=== PATIENT | female | born 1995 | race Caucasian/White ===

== ENCOUNTER 2020-01-31 12:04 | Emergency (ER) | payer OTHER, SELFPAY ==
[2020-01-31 12:15] VITALS: BP 121/80; PULSE 86; RESP 16; TEMP 36.6; O2SAT 100; BMI 37.4
--- NOTE | 2020-01-31 12:19 | ECG_ITS ---
Test Reason : SOB Blood Pressure : / mmHG Vent. Rate : 094 BPM Atrial Rate : 094 BPM P-R Int : 120 ms QRS Dur : 088 ms QT Int : 360 ms P-R-T Axes : 053 031 012 degrees QTc Int : 450 ms Normal sinus rhythm Normal ECG No previous ECGs available Referred By: Melba Hilliard Electronically Signed By:JUAN ALVARADO
--- NOTE | 2020-01-31 12:20 | XR_ITS ---
EXAMINATION: XR CHEST CLINICAL INFORMATION: SOB. COMPARISON: None TECHNIQUE: Frontal view of the chest was obtained. FINDINGS: The lungs are somewhat expanded with no acute pneumonic consolidation. Minimal prominence of or interstitial markings are seen. There is no pleural effusion. Heart size and pulmonary vascularity is normal. No gross bony abnormality seen. XR/XR chest 1V IMPRESSION: No acute cardiopulmonary process suspected at this time. However patient does have mild interstitial prominence, nonspecific
--- NOTE | 2020-01-31 12:24 | ED_ITS ---
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 Per EMS patient was found in mild respiratory distress, given 2 mg of IV magnesium, Solu-Medrol, and DuoNeb by EMS JAVASCRIPT SOFTWARE ENGINEER. Patient reports acute on chronic cough and chest tightness at present. Denies fever, chills, recent travel, LE edema, contact with MING Duran MD elicited complaint: shortness of breath and cough Related Data Previous Rx's Medication Instructions Recorded azithromycin See Rx Instructions .ROUTE 01/31/20 .COMPLEX #6 tab Allergies Allergy/AdvReac Type Severity Reaction Status Date / Time milk Allergy Unknown Verified 01/31/20 12:15 aspirin AdvReac Unknown Verified 01/31/20 12:15 ibuprofen [From Motrin] AdvReac Unknown Verified 01/31/20 12:15 Review of Systems Review of Systems: Constitutional: No Weight loss, No Fever, No Chills ENT/Mouth: No Hearing loss, No Ear Pain, No Nasal Congestion, No sore throat Eyes: No Eye Pain, No Swelling, No Redness, No Foreign Body, No Discharge, No Vi sylvie Changes Cardiovascular: + Chest Pain, + SOB, + Dyspnea on Exertion, No Orthopnea, No Edema Respiratory: No Cough, No Sputum, No Wheezing, No Smoke Exposure, No Dyspnea Gastrointestinal: No Nausea, No Vomiting, No Diarrhea, No Constipation, No Abdominal pain Musculoskeletal: No joint pain, No Myalgias, No Joint Swelling Skin: No Skin Lesions, No rash Yes all other systems are reviewed and are negative [facility] Past Medical History Attestation statement: The following information was validated with the patient. Social History Social History Advance Directives: No Advance Directives Information Provided: No Physical Exam Vital Signs: Vital Signs: Last Vital Signs Temp 97.9 F 01/31/20 12:15 Pulse 100 01/31/20 12:38 Resp 16 01/31/20 12:15 BP 121/80 01/31/20 12:15 Pulse Ox 100 01/31/20 12:15 Body Mass Index 37.4 Const: General: cooperative and healthy appearing Orientation/consciousness: patient oriented x3 Limitations: no limitations HENMT: Head: Yes normal to inspection Ears: hearing grossly normal bilaterally General nose exam: Normal external nose present Face and sinus: Yes normal facial exam Eyes: General: appearance normal, both eyes and all related structures EOM: EOMs intact bilaterally Neck: Neck: Yes normal visual inspection Resp: Other: Good air movement Effort & Inspection: normal respiratory effort Auscultation: clear to auscultation bilaterally and wheezes lower bilaterally Cardio: Rate: regular rate Heart sounds: S1 normal heart sound present and S2 normal heart sound present GI: Inspection: Yes normal to inspection Palpation (GI): Soft to palpation, nontender, no guarding and not rigid Skin: Rashes: no rashes Wounds: no wounds Neuro: General: patient oriented x3 Gait exam (Neuro): Normal gait present Extrem: Other: No LE edema or calf tenderness General: Yes normal to inspection Course Course Course Narrative: * 1410-on re-evaluation patient with lungs CTA. Reports symptomatic improvement after DuoNeb. Labs pending. CXR without acute process, does have mild interstitial prominence/nonspecific > likely patient has chronic pulmonary disease * 1420-leukocytosis of 16.8 > likely from patient's chronic prednisone use. Unlikely sepsis/other infectious/bacterial etiology * 1441-labs otherwise unremarkable including troponin * [id number] positive > patient reports she tested positive for COVID-19 3 weeks ago. Satting 96% on RA in no respiratory distress, lungs CTA > will abulate with pulse ox, and it does not desat plan for discharge home with Azithromycin. Patient already has prednisone/albuterol/nebs at home * 1520-patient ambulated in ED with pulse ox maintaining saturations greater than 94% without any respiratory distress or SOB. Plan for DC home with close PCP/pulmonology follow-up. Worrisome signs symptoms and strict return precautions discussed. 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 On exam satting 100% on aerosol mask, in no respiratory distress, bibasilar wheezing, nontoxic appearing. Concern for asthma exacerbation vs panic attack vs COVID-19. Rule out pneumonia. Lower concern for ACS/PE Plan: EKG, labs, CXR, DuoNeb, reassess Lab Data Result diagrams: 01/31/20 13:51 01/31/20 13:51 Labs: Lab Results 01/31/20 01/31/20 01/31/20 Range/Units 13:51 13:51 13:51 WBC 16.8 H (4.8-10.8) X10*3/uL RBC 4.84 (4.20-5.50) X10*6/uL Hgb 12.7 (12.0-16.0) g/dl Hct 40.1 (37-47) % MCV 82.9 (80-98) fL MCH 26.2 L (27.0-33.0) pg MCHC 31.7 (31.0-35.0) g/dl RDW 16.7 H (11.0-16.0) % Plt Count 342 (160-400) X10*3/uL MPV 8.7 L (9.4-12.3) fL Immature Gran % (Auto) 0.4 (0.0-0.4) % Neut % (Auto) 92.7 H (45-73) % Lymph % (Auto) 4.5 L (20-40) % Bell % (Auto) 2.0 (2-11) % Eos % (Auto) 0.2 (0-4) % Baso % (Auto) 0.2 (0-2) % Lymph # (Auto) 0.8 L (1.2-4.9) X10*3/uL [place] # (Auto) 0.3 (0.1-1.2) X10*3/uL Eos # (Auto) 0.0 (0.0-0.4) X10*3/uL Baso # (Auto) 0.0 (0.0-0.2) X10*3/uL Abs Immat Gran (auto) 0.06 H (0.00-0.03) X10*3/uL Absolute Neuts (auto) 15.5 H (2.0-8.3) X10*3/uL Absolute Nucleated RBC 0.000 (0.0-0.012) X10*3/uL Nucleated RBC % (auto) 0.0 (0.0-0.2) /100WBC Smear Tech's Comments VERIFIED Hold Blue Top Sodium 139 (135-145) mmol/L Potassium 3.5 (3.3-5.1) mmol/l Chloride 105 (96-108) mmol/L Carbon Dioxide 23 (22-29) mmol/L Anion Gap 15 (12-20) BUN 13 (9-16) mg/dL Creatinine 0.74 (0.5-1.4) mg/dL Estim Creat Clear Calc 116.9 Estimated GFR > 60 Random Glucose 98 (60-115) mg/dL Calcium 8.4 (8.4-10.2) mg/dL Magnesium 2.5 (1.6-2.6) mg/dL Total Bilirubin (0.0-1.0) mg/dL Direct Bilirubin (0.0-0.5) mg/dL AST (5-31) U/L ALT (0-31) U/L Alkaline Phosphatase (39-117) U/L Troponin I High Sens 4.3 (<3.5-17.0) ng/L Total Protein (6.5-8.0) g/dL Albumin (3.5-5.0) g/dL Coronavirus (PCR) (Negative) Influenza Type A (PCR) (Negative) Influenza Type B (PCR) (Negative) RSV RNA Qual (PCR) (Negative) 01/31/20 01/31/20 01/31/20 Range/Units 13:51 13:51 13:51 WBC (4.8-10.8) X10*3/uL RBC (4.20-5.50) X10*6/uL Hgb (12.0-16.0) g/dl Hct (37-47) % MCV (80-98) fL MCH (27.0-33.0) pg MCHC (31.0-35.0) g/dl RDW (11.0-16.0) % Plt Count (160-400) X10*3/uL MPV (9.4-12.3) fL Immature Gran % (Auto) (0.0-0.4) % Neut % (Auto) (45-73) % Lymph % (Auto) (20-40) % [place] % (Auto) (2-11) % Eos % (Auto) (0-4) % Baso % (Auto) (0-2) % Lymph # (Auto) (1.2-4.9) X10*3/uL [place] # (Auto) (0.1-1.2) X10*3/uL Eos # (Auto) (0.0-0.4) X10*3/uL Baso # (Auto) (0.0-0.2) X10*3/uL Abs Immat Gran (auto) (0.00-0.03) X10*3/uL Absolute Neuts (auto) (2.0-8.3) X10*3/uL Absolute Nucleated RBC (0.0-0.012) X10*3/uL Nucleated RBC % (auto) (0.0-0.2) /100WBC Smear Tech's Comments Hold Blue Top SEE NOTE Sodium (135-145) mmol/L Potassium (3.3-5.1) mmol/l Chloride (96-108) mmol/L Carbon Dioxide (22-29) mmol/L Anion Gap (12-20) BUN (9-16) mg/dL Creatinine (0.5-1.4) mg/dL Estim Creat Clear Calc Estimated GFR Random Glucose (60-115) mg/dL Calcium (8.4-10.2) mg/dL Magnesium (1.6-2.6) mg/dL Total Bilirubin 0.3 (0.0-1.0) mg/dL Direct Bilirubin 0.2 (0.0-0.5) mg/dL AST 18 (5-31) U/L ALT 18 (0-31) U/L Alkaline Phosphatase 93 (39-117) U/L Troponin I High Sens (<3.5-17.0) ng/L Total Protein 7.8 (6.5-8.0) g/dL Albumin 4.4 (3.5-5.0) g/dL Coronavirus (PCR) POSITIVE A (Negative) Influenza Type A (PCR) NEGATIVE (Negative) Influenza Type B (PCR) NEGATIVE (Negative) RSV RNA Qual (PCR) NEGATIVE (Negative) Discharge Plan Discharge Clinical Impression: COVID-19, Anxiety Asthma with exacerbation Qualifiers: Asthma severity: unspecified severity Asthma persistence: unspecified Qualified Code(s): J45.901 - Unspecified asthma with (acute) exacerbation Patient Disposition: Home, Self-Care Instructions: Asthma (ED), COVID-19 (Coronavirus Disease 2019) (ED) Additional Instructions: Your blood work and chest x-ray were reassuring today in the ED. You are still positive for COVID-19, which is to be expected with her recent COVID-19 illness. You need to continue using her neb machine, inhalers, and taking daily prednisone at home YOU ALSO NEED TO START TAKING AZITHROMYCIN PRESCRIBED Call your doctor and your technical designer If her symptoms persist, recur, you have fever, constant worsening shortness of breath or chest pain return to the ED Prescriptions: New azithromycin 250 mg tablet See Rx Instructions .ROUTE .COMPLEX Qty: 6 RF: 0 Referrals: Physician,None [Primary Care Provider] - 2 days (Your doctor)
[2020-01-31] MEDS: Albuterol/Iprat 2.5/0.5MG 3 ML AMPUL.NEB INHALE (12:34)
[2020-01-31] MEDS: LORazepam 1 MG TABLET PO (12:37)
[2020-01-31 12:38] VITALS: PULSE 100; O2SAT 97
[2020-01-31 13:58] LABS: Basophils Percent Auto 0.2 % (0-2); Eosinophils Percent Auto 0.2 % (0-4); Hematocrit 40.1 % (37-47); Hemoglobin 12.7 g/dl (12.0-16.0); Imm Gran Abs Auto 0.06 X10*3/uL (0.00-0.03); Imm Gran Pct Auto 0.4 % (0.0-0.4); Lymphocytes Absolute Auto 0.8 X10*3/uL (1.2-4.9); Lymphocytes Percent Auto 4.5 % (20-40); Mean Corpuscular HGB Conc 31.7 g/dl (31.0-35.0); Mean Corpuscular Hemoglobin 26.2 pg (27.0-33.0); Mean Corpuscular Volume 82.9 fL (80-98); Mean Platelet Volume 8.7 fL (9.4-12.3); Monocytes Absolute Auto 0.3 X10*3/uL (0.1-1.2); Neutrophils Absolute Auto 15.5 X10*3/uL (2.0-8.3); Neutrophils Percent Auto 92.7 % (45-73); Platelet Count 342 X10*3/uL (160-400); Red Blood Count 4.84 X10*6/uL (4.20-5.50); Red Cell Distribution Width 16.7 % (11.0-16.0); SCAN SMEAR FLAG 1; White Blood Count 16.8 X10*3/uL (4.8-10.8)
[2020-01-31 13:59] LABS: MANUAL DIFF FLAG SCAN
[2020-01-31 14:18] LABS: SLIDE REVIEW VERIFIED
[2020-01-31 14:26] LABS: Alanine Aminotransferase 18 U/L (0-31); Albumin Level 4.4 g/dL (3.5-5.0); Alkaline Phosphatase 93 U/L (39-117); Anion Gap 15 (12-20); Aspartate Amino Transferase 18 U/L (5-31); Bilirubin Direct 0.2 mg/dL (0.0-0.5); Bilirubin Total 0.3 mg/dL (0.0-1.0); Blood Urea Nitrogen 13 mg/dL (9-16); Calcium 8.4 mg/dL (8.4-10.2); Carbon Dioxide 23 mmol/L (22-29); Chloride 105 mmol/L (96-108); Creatinine Clr Calc Pharmacy 116.9; Estimated Glomerular Filt Rate > 60; Glucose Random 98 mg/dL (60-115); Magnesium 2.5 mg/dL (1.6-2.6); Potassium 3.5 mmol/l (3.3-5.1); Sodium 139 mmol/L (135-145); Total Protein 7.8 g/dL (6.5-8.0)
[2020-01-31 14:29] LABS: Troponin-I High Sensitivity 4.3 ng/L (<3.5-17.0)
[2020-01-31 14:38] LABS: Influenza A PCR NEGATIVE (Negative); Influenza B PCR NEGATIVE (Negative); Resp Syncy Virus RNA Qual PCR NEGATIVE (Negative); SARS COV2 PCR INHOUSE POSITIVE (Negative)
[2020-01-31] MEDS: Azithromycin 500 MG TABLET PO (15:42)
[2020-01-31 15:57] VITALS: PULSE 88; RESP 18; O2SAT 94
== END 2020-01-31 15:59 | disposition home or self-care (01) ==
PROVIDERS: Physician Assistant; Emergency Provider Emergency Medicine
DX: U07.1 COVID-19 (principal); R05 Cough; R06.00 Dyspnea, unspecified; F41.1 Generalized anxiety disorder; F43.0 Acute stress reaction
CPT/HCPCS: 0241U; 36415; 71045; 80048; 80076; 83735; 84484; 85025; 93005; 94640; 99284

== ENCOUNTER 2020-02-20 12:56 | Emergency (ER) | payer OTHER, SELFPAY ==
--- NOTE | 2020-02-20 | ECG_ITS ---
Test Reason : DYSPNEA Blood Pressure : / mmHG Vent. Rate : 087 BPM Atrial Rate : 087 BPM P-R Int : 114 ms QRS Dur : 090 ms QT Int : 368 ms P-R-T Axes : 055 054 016 degrees QTc Int : 442 ms Normal sinus rhythm with sinus arrhythmia Normal ECG When compared to the previous EKG of No significant changes seen Referred By: Erica Campos Electronically Signed By:Juan F Gray
[2020-02-20] MEDS: LORazepam 2 MG/ML VIAL 1 MG IVPUSH (13:00)
--- NOTE | 2020-02-20 13:08 | XR_ITS ---
EXAMINATION: XR CHEST CLINICAL INFORMATION: Shortness of breath. COMPARISON: 01/31/20. TECHNIQUE: Frontal view of the chest was obtained. FINDINGS: No significant abnormality is noted involving the heart, lungs, mediastinum, bony thorax or soft tissues. XR/XR chest 1V IMPRESSION: Normal examination.
[2020-02-20 13:11] VITALS: BP 128/80; BP 132/69; PULSE 80; PULSE 86; RESP 40; TEMP 36.6; O2SAT 100; O2SAT 97; BMI 29.2
--- NOTE | 2020-02-20 13:15 | PC.NURSE ---
calmed followiung ativan. even once calm was unwilling to speak but with coaching began to answer questions.
[2020-02-20 13:23] LABS: Basophils Percent Auto 0.2 % (0-2); Eosinophils Absolute Auto 0.1 X10*3/uL (0.0-0.4); Eosinophils Percent Auto 0.9 % (0-4); Hematocrit 39.7 % (37-47); Hemoglobin 12.8 g/dl (12.0-16.0); Imm Gran Abs Auto 0.02 X10*3/uL (0.00-0.03); Imm Gran Pct Auto 0.2 % (0.0-0.4); Lymphocytes Absolute Auto 2.4 X10*3/uL (1.2-4.9); Lymphocytes Percent Auto 24.1 % (20-40); MANUAL DIFF FLAG NO; Mean Corpuscular HGB Conc 32.2 g/dl (31.0-35.0); Mean Corpuscular Hemoglobin 26.5 pg (27.0-33.0); Mean Corpuscular Volume 82.2 fL (80-98); Mean Platelet Volume 8.8 fL (9.4-12.3); Monocytes Absolute Auto 1.2 X10*3/uL (0.1-1.2); Monocytes Percent Auto 11.9 % (2-11); Neutrophils Absolute Auto 6.3 X10*3/uL (2.0-8.3); Neutrophils Percent Auto 62.7 % (45-73); Platelet Count 358 X10*3/uL (160-400); Red Blood Count 4.83 X10*6/uL (4.20-5.50); Red Cell Distribution Width 17.1 % (11.0-16.0)
[2020-02-20] MEDS: 0.9 % Sodium Chloride 1,000 ML 999 ML IVCONT ×2 (13:24→14:09)
--- NOTE | 2020-02-20 13:24 | ED.SOB ---
HPI - SOB/Dyspnea General Chief Complaint: Dyspnea Stated Complaint: RESPIRATORY DISTRESS, + COVID Time Seen by Provider: 02/20/20 13:07 Source: EMS Mode of arrival: EMS Limitations: other (Severe anxiety) History of Present Illness HPI Narrative: Patient comes via EMS for respiratory distress. Per EMS, they gave the patient 2 doses of epinephrine IM and 1 dose of Solu-Medrol. On arrival to the emergency room, patient unwilling to talk, patient's oxygen saturation is 100% on room air, patient having a panic attack. According to the EMS crew, the patient called for severe respiratory distress, sudden onset. Of note, patient is known to be COVID-19 positive. Related Data Previous Rx's Medication Instructions Recorded azithromycin See Rx Instructions .ROUTE 01/31/20 .COMPLEX #6 tab Allergies Allergy/AdvReac Type Severity Reaction Status Date / Time milk Allergy Unknown Verified 02/20/20 13:04 aspirin AdvReac Unknown Verified 02/20/20 13:04 ibuprofen [From Motrin] AdvReac Unknown Verified 02/20/20 13:04 Review of Systems Review of Systems: Yes Unobtainable due to mental condition [facility] Past Medical History Medical History (Updated 02/20/20 @ 16:24 by Georgina Villeda MD) Anxiety Asthma Pulmonary hemosiderosis Social History Social History Alcohol intake: never Smoking Status: Never smoker Smoked in Last 30 Days: No Use of substances other than those prescribed or required for medical reasons: Yes Substance Use Type: Marijuana Advance Directives: No Advance Directives Information Provided: No Physical Exam Vital Signs: Vital Signs: Last Vital Signs Temp 98.4 F 02/20/20 15:24 Pulse 120 H 02/20/20 15:24 Resp 18 02/20/20 15:24 BP 134/62 02/20/20 15:24 Pulse Ox 99 02/20/20 15:24 Body Mass Index 29.2 Appearance: Alert. Patient having a panic attack Eyes: Pupils equal, round and reactive to light. ENT: Pharynx normal. Neck: Normal inspection. Neck supple. No lymph nodes noted. No crepitus CVS: Normal heart rate and rhythm. Pulses normal. Normal S1 and S2 Respiratory: Patient breathing rapidly, Breath sounds normal. No Wheezing. No rales , oxygen saturation 100% on room air Abdomen: Soft and nontender. No rigidity. No distention. good BS x4 Skin: Skin warm and dry. Normal skin color. Normal skin turgor. Extremities: No lower extremity edema. No lower extremity edema. No Lacerations. No Rash Neuro: Oriented X 3. No motor deficit. No sensory deficit. Moving all extermities. No slurred speech. Course Course Course Narrative: Patient's lactic acidosis likely due to the panic attack, in combination with 2 epinephrine. And albuterol treatments. White blood cell count is normal, chest x-ray is normal, sepsis is not suspected. Patient's respiratory distress resolved with Ativan. However, patient's D-dimer is 720, and given the history of recent diagnosis with COVID-19, patient will be scan. PE CT scan pending. Sign out given to Dr. Campos MDM - SOB/Dyspnea Lab Data Result diagrams: 02/20/20 13:15 02/20/20 13:15 Labs: Lab Results 02/20/20 02/20/20 02/20/20 Range/Units 13:15 13:15 13:15 WBC 10.0 (4.8-10.8) X10*3/uL RBC 4.83 (4.20-5.50) X10*6/uL Hgb 12.8 (12.0-16.0) g/dl Hct 39.7 (37-47) % MCV 82.2 (80-98) fL MCH 26.5 L (27.0-33.0) pg MCHC 32.2 (31.0-35.0) g/dl RDW 17.1 H (11.0-16.0) % Plt Count 358 (160-400) X10*3/uL MPV 8.8 L (9.4-12.3) fL Immature Gran % (Auto) 0.2 (0.0-0.4) % Neut % (Auto) 62.7 (45-73) % Lymph % (Auto) 24.1 (20-40) % [place] % (Auto) 11.9 H (2-11) % Eos % (Auto) 0.9 (0-4) % Baso % (Auto) 0.2 (0-2) % Lymph # (Auto) 2.4 (1.2-4.9) X10*3/uL [place] # (Auto) 1.2 (0.1-1.2) X10*3/uL Eos # (Auto) 0.1 (0.0-0.4) X10*3/uL Baso # (Auto) 0.0 (0.0-0.2) X10*3/uL Abs Immat Gran (auto) 0.02 (0.00-0.03) X10*3/uL Absolute Neuts (auto) 6.3 (2.0-8.3) X10*3/uL Absolute Nucleated RBC 0.000 (0.0-0.012) X10*3/uL Nucleated RBC % (auto) 0.0 (0.0-0.2) /100WBC D-Dimer 720 NG/ML Sodium 139 (135-145) mmol/L Potassium 3.6 (3.3-5.1) mmol/l Chloride 106 (96-108) mmol/L Carbon Dioxide 20 L (22-29) mmol/L Anion Gap 17 (12-20) BUN 13 (9-16) mg/dL Creatinine 0.79 (0.5-1.4) mg/dL Estim Creat Clear Calc 96.1 Estimated GFR > 60 Random Glucose 125 H (60-115) mg/dL Lactic Acid (0.5-2.0) mmol/L Calcium 9.2 D (8.4-10.2) mg/dL Troponin I High Sens (<3.5-17.0) ng/L B-Natriuretic Peptide (<100) pg/mL 02/20/20 02/20/20 Range/Units 13:15 13:15 WBC (4.8-10.8) X10*3/uL RBC (4.20-5.50) X10*6/uL Hgb (12.0-16.0) g/dl Hct (37-47) % MCV (80-98) fL MCH (27.0-33.0) pg MCHC (31.0-35.0) g/dl RDW (11.0-16.0) % Plt Count (160-400) X10*3/uL MPV (9.4-12.3) fL Immature Gran % (Auto) (0.0-0.4) % Neut % (Auto) (45-73) % Lymph % (Auto) (20-40) % [place] % (Auto) (2-11) % Eos % (Auto) (0-4) % Baso % (Auto) (0-2) % Lymph # (Auto) (1.2-4.9) X10*3/uL [place] # (Auto) (0.1-1.2) X10*3/uL Eos # (Auto) (0.0-0.4) X10*3/uL Baso # (Auto) (0.0-0.2) X10*3/uL Abs Immat Gran (auto) (0.00-0.03) X10*3/uL Absolute Neuts (auto) (2.0-8.3) X10*3/uL Absolute Nucleated RBC (0.0-0.012) X10*3/uL Nucleated RBC % (auto) (0.0-0.2) /100WBC D-Dimer NG/ML Sodium (135-145) mmol/L Potassium (3.3-5.1) mmol/l Chloride (96-108) mmol/L Carbon Dioxide (22-29) mmol/L Anion Gap (12-20) BUN (9-16) mg/dL Creatinine (0.5-1.4) mg/dL Estim Creat Clear Calc Estimated GFR Random Glucose (60-115) mg/dL Lactic Acid 3.5 H* (0.5-2.0) mmol/L Calcium (8.4-10.2) mg/dL Troponin I High Sens < 3.5 (<3.5-17.0) ng/L B-Natriuretic Peptide < 10 (<100) pg/mL ECG Data Attestation: I personally reviewed and interpreted this ECG as follows: (Normal sinus rhythm, heart rate 87, QTC 442, no ST segment depressions or elevations, nonspecific T-wave inversions in lead III) Discharge Plan Discharge Clinical Impression: Panic attack Patient Disposition: Home, Self-Care Instructions: Anxiety (ED) Additional Instructions: Please follow-up with your primary care physician tomorrow. If you have any worsening or new symptoms, please return to the emergency room or call 911 Prescriptions: No Action azithromycin 250 mg tablet See Rx Instructions .ROUTE .COMPLEX Qty: 6 RF: 0
[2020-02-20 13:30] LABS: D Dimer 720 NG/ML
[2020-02-20 13:41] LABS: Anion Gap 17 (12-20); Blood Urea Nitrogen 13 mg/dL (9-16); Calcium 9.2 mg/dL (8.4-10.2); Carbon Dioxide 20 mmol/L (22-29); Chloride 106 mmol/L (96-108); Creatinine Clr Calc Pharmacy 96.1; Estimated Glomerular Filt Rate > 60; Glucose Random 125 mg/dL (60-115); Potassium 3.6 mmol/l (3.3-5.1); Sodium 139 mmol/L (135-145)
[2020-02-20 13:49] LABS: B Type Natriuretic Peptide < 10 pg/mL (<100); Troponin-I High Sensitivity < 3.5 ng/L (<3.5-17.0)
[2020-02-20 13:52] LABS: Lactic Acid 3.5 mmol/L (0.5-2.0)
[2020-02-20 14:00] VITALS: BP 140/80; PULSE 105; RESP 20; TEMP 36.6; O2SAT 100
--- NOTE | 2020-02-20 14:44 | PC.NURSE ---
Sleeping. No SOB. Skin pwd.
--- NOTE | 2020-02-20 14:45 | CT_ITS ---
EXAMINATION: CT ANGIOGRAM OF THE CHEST WITH AND WITHOUT CONTRAST (CT PULMONARY ANGIOGRAM FOR PE) CLINICAL INFORMATION: Shortness breath. Elevated d-dimer. Recreation of smoker. History of pulmonary hemosiderosis. COVID diagnosed on 01/31/2020 COMPARISON: Chest x-ray dated 03/22/2020 and 01/31/2020 TECHNIQUE: Prior to contrast administration, noncontrast localization images were obtained. Subsequently, multidetector volumetric imaging was performed from the thoracic inlet to below the diaphragms following the administration of 65 mL Omnipaque 350 intravenous contrast. No contrast reaction reported Sagittal, coronal, and MIP oblique sagittal reformatted images were obtained on the CT workstation, uploaded to PACS, and reviewed. This CT examination was performed using dose optimization techniques as appropriate, variously including the following: *Automated exposure control *Adjustment of mA and/or kV according to patient size (this includes techniques or standardized protocols for targeted exams where dose is matched to indication/reason for exam; i.e. extremities or head) *Use of iterative reconstruction technique Total exam dose-length product 308 mGy-cm FINDINGS: QUALITY OF STUDY/CONTRAST BOLUS: Satisfactory. PULMONARY ARTERIES: No central or segmental pulmonary emboli. THORACIC AORTA: No aneurysm or dissection. LUNG: There is diffuse groundglass opacity throughout both lungs with mosaic bilaterally. No parenchymal consolidation. There is a 4 mm mean diameter nodule lobe with a pleural tag likely intrapulmonary lymph node. There is a 4 mm nodule within the left lower lobe. No significant bronchial wall thickening or bronchiectasis. PLEURA: No pleural effusion or pneumothorax. MEDIASTINUM: Normal heart size. No pericardial effusion. No hilar or mediastinal lymphadenopathy. No evidence of septal bowing or right heart strain. No reflux of contrast into the hepatic veins to suggest elevated right heart pressures. CHEST WALL/AXILLA: No axillary or internal mammary lymphadenopathy. OSSEOUS STRUCTURES: No acute or suspicious osseous abnormality. UPPER ABDOMEN: Unremarkable. CT/CT angio chest PE protocol IMPRESSION: * No evidence of pulmonary embolism. * Diffuse bilateral groundglass opacities, homogeneous within the upper lobes and in a mosaic pattern within the lower lobes. The lower lobe mosaic appearance suggests that this represents an airway-based process (greater ventilation within the lower lobes). Favor acute hypersensitivity pneumonitis given the patient's history. Less likely considerations would include COVID (given the atypical appearance and the time frame), and diffuse alveolar hemorrhage (given the lack of hemoptysis; only mentioned bc of the patient's history of pulmonary hemosiderosis) VTE: negative This critical result was discussed with Erica Silver MD at 02/20/2020 6:45 PM and it was ascertained that the content and urgency of the report was understood at the time of direct communication.
[2020-02-20 15:20] LABS: Reflex Lactate? Lactic Acid Added
[2020-02-20 15:24] VITALS: BP 134/62; PULSE 120; RESP 18; TEMP 36.9; O2SAT 99
[2020-02-20 17:07] LABS: UPreg QC Valid YES; Urine Pregnancy NEGATIVE (NEGATIVE)
[2020-02-20 17:09] VITALS: BP 108/57; PULSE 103; RESP 16; TEMP 37; O2SAT 97
[2020-02-20 17:23] LABS: Amphetamine Screen Urine Not Detected (Not Detect); Barbiturates, Urine Not Detected (Not Detect); Benzodiazepines Screen Urine Not Detected (Not Detect); Cannabinoid Screen Urine POSITIVE (Not Detect); Cocaine Screen Urine Not Detected (Not Detect); Opiate Screen Urine Not Detected (Not Detect); Phencyclidine Screen Urine Not Detected (Not Detect)
[2020-02-20 17:35] LABS: ~Lactic Acid-LAB USE ONLY 3.6 mmol/L (0.5-2.0)
[2020-02-20 18:25] VITALS: BP 118/70; PULSE 96; RESP 20; O2SAT 98
[2020-02-20] MEDS: iohexoL 350 MG/ML 100 ML INFUS..BTL IV (18:27)
[2020-02-20 18:45] LABS: Reflex Lactate? 2 Y
[2020-02-20 19:32] LABS: ~Lactic Acid-LAB USE ONLY 2.1 mmol/L (0.5-2.0)
[2020-02-20 19:35] LABS: Cancel Lactic Acid Canceled
[2020-02-20 20:04] VITALS: BP 118/75; PULSE 86; RESP 22; TEMP 37.1; O2SAT 98
== END 2020-02-20 20:42 | disposition home or self-care (01) ==
PROVIDERS: Emergency Medicine; Emergency Provider Emergency Medicine
DX: F41.0 Panic disorder [episodic paroxysmal anxiety] (principal); Z86.16 Personal history of COVID-19; J45.909 Unspecified asthma, uncomplicated; F12.90 Cannabis use, unspecified, uncomplicated
CPT/HCPCS: 36415; 71045; 71275; 80048; 80307; 81025; 83605; 83880; 84484; 85025; 85379; 87040; 93005; 96361; 96374; 99284; J2060; Q9967

== ENCOUNTER 2020-02-27 22:06 | Emergency (ER) | payer OTHER, SELFPAY ==
[2020-02-27 22:21] VITALS: BP 115/69; BP 133/78; PULSE 95; PULSE 97; RESP 20; TEMP 36.6; O2SAT 100; O2SAT 97; BMI 31.2
--- NOTE | 2020-02-27 22:43 | ED_ITS ---
HPI - General Adult General Chief complaint: Dyspnea Time Seen by Provider: 02/27/20 22:22 Source: patient Mode of arrival: EMS Limitations: no limitations History of Present Illness HPI narrative: 24-year-old female who presents the emergency department for evaluation shortness of breath. The patient has a history of pulmonary hemosiderosis. She states that when she has a flare up of this condition she coughs up blood or she can taste blood in the back of her mouth. She states that this evening she could taste blood in the back of her mouth and then she became short of breath. The symptoms started approximately 10 minutes prior to being transported to the emergency department. EMS felt that the patient had wheezing and stridor and gave her racemic epi en route to the hospital with improvement of her symptoms. The patient does take prednisone 40 mg once a day chronically for her pulmonary hemosiderosis. She states that she is feeling better but still feels short of breath. She states that this is a [id number]-[id number] sensation. She is also complaining of Constant, mid sternal chest tightness which is worse with breathing. The pain is xbpi-[id number] in intensity. the patient denied fever, chills, nausea, vomiting, diarrhea. The patient tested COVID positive in November and January 2020. Related Data Previous Rx's Medication Instructions Recorded azithromycin See Rx Instructions .ROUTE 01/31/20 .COMPLEX #6 tab Allergies Allergy/AdvReac Type Severity Reaction Status Date / Time milk Allergy Unknown Verified 02/27/20 22:21 aspirin AdvReac Unknown Verified 02/27/20 22:21 ibuprofen [From Motrin] AdvReac Unknown Verified 02/27/20 22:21 Review of Systems Review of Systems: Yes all other systems are reviewed and are negative Neurologic: Reports Abnormal speech present [facility] Past Medical History Medical History Anxiety Asthma Pulmonary hemosiderosis Social History Social History Alcohol intake: never Smoking Status: Never smoker Use of substances other than those prescribed or required for medical reasons: Yes Substance Use Type: Marijuana Advance Directives: No Advance Directives Information Provided: No Physical Exam Vital Signs: Vital Signs: Last Vital Signs Temp 97.9 F 02/27/20 22:21 Pulse 97 02/27/20 22:21 Resp 20 02/27/20 22:21 BP 115/69 02/27/20 22:21 Pulse Ox 97 02/27/20 22:21 Body Mass Index 31.2 Const: General: cooperative Nutritional Appearance: overweight Orientation/consciousness: oriented to person and oriented to place Limitations: no limitations HENMT: Head: Yes normal to inspection, Yes normocephalic and Yes atraumatic Ears: external ears normal General nose exam: Normal external nose present Face and sinus: Yes normal facial exam Mouth: Normal oral and palatal mucosa present Throat: Yes posterior oropharynx normal Eyes: Periorbital: periorbital findings normal Eyelids: Yes eyelids normal Conjunctivae: conjunctivae normal Sclerae: sclerae normal Corneas: corneas normal Pupils: Equal, round and reactive pupils present Direct Ophthalmoscopy: normal light reflex Neck: Neck: Yes full ROM, Yes no lymphadenopathy, Yes no meningeal signs, Yes trachea midline and Yes supple Chest: Chest palpation & inspection: normal inspection of the chest and normal palpation of entire chest wall Resp: Effort & Inspection: normal respiratory effort and able to speak in complete sentences Auscultation: wheezes scattered wheezes Cardio: Rate: regular rate Rhythm: regular rhythm Heart sounds: S1 normal heart sound present, S2 normal heart sound present and no murmurs GI: Inspection: Yes normal to inspection Palpation (GI): Soft to palpation, nontender, no guarding, not rigid and No hepatosplenomegaly present : General: Yes no CVA tenderness Back/Spine/Pelvis: Back: no CVA tenderness Cervical Spine: normal cervical lordosis Thoracic/Lumbar Spine: thoracic and lumbar spine normal to inspection Skin: Lesions: no lesions Rashes: no rashes Wounds: no wounds Neuro: General: oriented to person, oriented to place and no meningeal signs Cranial nerves: Yes CN's II-XII intact bilaterally and Yes Equal, round and reactive pupils present Cognition (Neuro): normal cognition Speech: Abnormal speech present Motor exam (neuro): 5/5 motor strength present throughout Extrem: General: Yes normal to inspection and Yes full ROM Psych: Appearance: well kempt Mental Status: mental status grossly normal Speech and movement: Normal speech and movement present Affect: normal affect Attitude: cooperative Thought process: Normal thought process present Thought content: Normal thought content present Course Course Course Narrative: 24-year-old female with history of asthma, pulmonary hemosiderosis and anxiety who presents emergency department for evaluation shortness of breath and the taste of blood in the back of her mouth which are symptoms that are consistent with flare-up of her pulmonary hemosiderosis. The patient was given racemic epinephrine EN route to the hospital with improvement of her symptoms . the patient's vital signs are stable with an O2 saturation of 97% on room air. She did have diffuse wheezing on her lung exam. I ordered Solu-Medrol 125 mg IV and albuterol nebulizer treatment on the patient. 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 Follow-up with your doctor in 2 days. Please return to the emergency department if your symptoms get worse or if you develop any symptoms that are concerning to you. Prescriptions: No Action azithromycin 250 mg tablet See Rx Instructions .ROUTE .COMPLEX Qty: 6 RF: 0
[2020-02-27 23:30] VITALS: PULSE 81; O2SAT 100
[2020-02-27] MEDS: Albuterol Sulfate (0.083%) 2.5 MG/3 ML VIAL.NEB INHALE (23:30)
== END 2020-02-28 00:07 | disposition home or self-care (01) ==
PROVIDERS: Emergency Provider Emergency Medicine Emergency Medical Services
DX: E83.10 Disorder of iron metabolism, unspecified (principal); J45.901 Unspecified asthma with (acute) exacerbation; Z86.16 Personal history of COVID-19
CPT/HCPCS: 94640; 96365; 99284; J2930

== ENCOUNTER 2024-03-06 10:50 | Emergency (ER) | payer OTHER, SELFPAY ==
[2024-03-06 11:34] VITALS: BP 127/72; PULSE 71; RESP 16; TEMP 36.8; O2SAT 99; BMI 25.9
--- NOTE | 2024-03-06 11:35 | ED_ITS ---
HPI - General Adult General Chief complaint: Skin/Abscess/Foreign Body Stated complaint: remove stitches Time Seen by Provider: 03/06/24 11:35 Source: patient and RN notes reviewed Mode of arrival: ambulatory Limitations: no limitations History of Present Illness ED Provider: Lizett HPI narrative: 28-year-old female presents for evaluation of a suture removal. She reports that she had 1 suture placed to the palm of her right hand 10 days ago at [facility] Denies any drainage from the area Related Data Previous Rx's ?Medication ?Instructions ?Recorded azithromycin 250 mg tablet See Rx Instructions PO .COMPLEX #6 01/31/20 tabs Allergies Allergy/AdvReac Type Severity Reaction Status Date / Time milk Allergy Unknown Verified 03/06/24 11:35 aspirin AdvReac Unknown Verified 03/06/24 11:35 ibuprofen [From Motrin] AdvReac Unknown Verified 03/06/24 11:35 Review of Systems Integumentary/Breasts: Skin/Breast: Reports wounds PMFSH Past Medical History Medical History Anxiety Asthma Pulmonary hemosiderosis Social History Social History Alcohol intake: never Substance Use Type: Marijuana Advance Directives: No Advance Directives Information Provided: Yes Physical Exam ED Vital Signs: Vital Signs - 24 hr 03/06/24 11:34 03/06/24 11:54 Temperature 98.2 F 98.2 F Pulse Rate 71 71 Respiratory Rate 16 16 Blood Pressure 127/72 127/72 Pulse Oximetry 99 99 Oxygen Delivery Method Room Air Room Air BMI result Body Mass Index 25.9 Skin Other: There is a 1 cm well-healed laceration to the palmar surface of the right hand in between the 1st and 2nd web spacing. The wound is well approximated, no dehiscence, no surrounding erythema or drainage. Medical Decision Making Medical Decision Making [facility] Narrative: We were easily able to remove 1 suture, the wound is remain well healed after removal of the suture. She will follow up with her PCP Differential Diagnosis Differential Diagnoses: The differential diagnosis associated with the presentation includes Suture removal Laceration Puncture wound Abrasion Discharge Plan Discharge Clinical Impression: Laceration of hand, right Patient Disposition: Home, Self-Care Instructions: Laceration (ED) Additional Instructions: The area clean and dry, follow up with your primary doctor Prescriptions: No Action azithromycin 250 mg tablet See Rx Instructions .ROUTE .COMPLEX Qty: 6 0RF Rx Instructions: take 500 mg today (day 1), then 250 mg for 4 days (days 2-5) Interventions: ED Discharge Assessment Last Done: 03/06/24 11:54 Discharge Date/Time: 03/06/24 11:57 Print Language: Armenian
[2024-03-06 11:54] VITALS: BP 127/72; PULSE 71; RESP 16; TEMP 36.8; O2SAT 99
== END 2024-03-06 11:57 | disposition home or self-care (01) ==
PROVIDERS: Emergency Provider Emergency Medicine
DX: Z48.02 Encounter for removal of sutures (principal); S61.411D Laceration without foreign body of right hand, subsequent encounter; W45.8XXD Other foreign body or object entering through skin, subsequent encounter
CPT/HCPCS: 99282

== ENCOUNTER 2024-03-16 19:28 | Emergency (ER) | payer OTHER, SELFPAY ==
--- NOTE | 2024-03-16 | ECG_ITS ---
Test Reason : CHEST PAIN Blood Pressure : */* mmHG Vent. Rate : 106 BPM Atrial Rate : 106 BPM P-R Int : 128 ms QRS Dur : 188 ms QT Int : 376 ms P-R-T Axes : 90 71 18 degrees QTcB Int : 499 ms Artifact in tracing Normal sinus rhythm likely normal When compared with ECG of 20-Feb-2020 12:59, likely No significant changes seen Referred By: Generic ED Physician Electronically Signed By: JUAN ALVARADO
--- NOTE | ~2024-03-16 | XR_ITS ---
CLINICAL HISTORY: Dyspnea 1 view chest x-ray. Comparison: 02/20/2020 Findings: Lungs are clear without acute infiltrates. No pneumothorax. Heart size normal. No acute bony abnormalities. Impression: No acute processes This document has been electronically signed by: Familia Carranza MD on 03/16/2024 20:13:07
[2024-03-16 19:39] VITALS: BP 133/86; BP 136/68; PULSE 101; PULSE 109; RESP 21; TEMP 36.8; O2SAT 100; O2SAT 98; BMI 26.7
[2024-03-16 20:32] LABS: Basophils Percent Auto 0.2 % (0-2); Hematocrit 39.8 % (37.0-47.0); Hemoglobin 14.1 g/dl (12.0-16.0); Imm Gran Abs Auto 0.02 X10*3/uL (0.00-0.03); Imm Gran Pct Auto 0.4 % (0.0-0.4); Lymphocytes Absolute Auto 1.5 X10*3/uL (1.2-4.9); Lymphocytes Percent Auto 25.4 % (20-40); MANUAL DIFF FLAG SCAN; Mean Corpuscular HGB Conc 35.4 g/dl (31.0-35.0); Mean Corpuscular Hemoglobin 31.5 pg (27.0-33.0); Mean Corpuscular Volume 88.8 fL (80.0-98.0); Mean Platelet Volume 9.2 fL (9.4-12.3); Monocytes Absolute Auto 1.2 X10*3/uL (0.1-1.2); Monocytes Percent Auto 20.5 % (2-11); Neutrophils Absolute Auto 3.1 x10*3/uL (2.0-8.3); Neutrophils Percent Auto 53.5 % (45-73); Platelet Count 253 X10*3/uL (160-400); Red Blood Count 4.48 X10*6/uL (4.20-5.50); Red Cell Distribution Width 14.3 % (11.0-16.0); SCAN SMEAR FLAG 1; White Blood Count 5.7 X10*3/uL (4.8-10.8)
[2024-03-16 20:34] LABS: VBG Base Excess -1.9 mmol/L; VBG HCO3 22 mmol/L (22-26); VBG pCO2 36 mmHg; VBG pH 7.39 (7.32-7.43); VBG pO2 69 mmHg
[2024-03-16 20:40] LABS: Venous Blood Gas Refer to POC result
[2024-03-16 20:46] LABS: Alanine Aminotransferase 20 U/L (0-31); Albumin Level 4.3 g/dL (3.5-5.0); Alkaline Phosphatase 61 U/L (39-117); Anion Gap 12 (12-20); Aspartate Amino Transferase 35 U/L (5-31); Bilirubin Total 0.3 mg/dL (0.0-1.0); Blood Urea Nitrogen 13 mg/dL (9-16); Carbon Dioxide 20 mmol/L (22-29); Chloride 109 mmol/L (96-108); Creatinine Clr Calc Pharmacy 104.6; Estimated Glomerular Filt Rate > 60; Glucose Random 94 mg/dL (60-115); Potassium 3.1 mmol/L (3.3-5.1); Sodium 138 mmol/L (135-145); Total Protein 8.2 g/dL (6.5-8.0)
[2024-03-16 20:57] LABS: Troponin-I High Sensitivity < 2.7 ng/L (<3.5-17.0)
--- NOTE | 2024-03-16 21:05 | ED.ASTHMA ---
HPI - Asthma General Chief Complaint: Asthma Stated Complaint: asthma attack x30 mins Time Seen by Provider: 03/16/24 21:05 History of Present Illness ED Provider: Madhavi PENA Narrative: The patient is a 28-year-old woman with a history of asthma and idiopathic pulmonary hemosiderosis. She has felt distinctly unwell for the last 2 days. She has had fevers, body aches, and cough. She tried using her inhaler but she did not feel it was very helpful. Ultimately she came to the hospital. The patient does not really feel that her illness feels consistent with an asthma exacerbation. Additionally the patient does not feel that these symptoms are typical of an exacerbation of her idiopathic pulmonary hemosiderosis. She has not had any hemoptysis. The patient has not had any calf swelling or pain. Related Data Previous Rx's ?Medication ?Instructions ?Recorded azithromycin 250 mg tablet See Rx Instructions PO .COMPLEX #6 01/31/20 tabs oseltamivir 75 mg capsule 75 mg PO BID 5 days #10 caps 03/16/24 Allergies Allergy/AdvReac Type Severity Reaction Status Date / Time milk Allergy Unknown Verified 03/16/24 19:45 aspirin AdvReac Unknown Verified 03/16/24 19:45 ibuprofen [From Motrin] AdvReac Unknown Verified 03/16/24 19:45 Review of Systems Review of Systems: Yes all other systems are reviewed and are negative [facility] Past Medical History Medical History Anxiety Asthma Pulmonary hemosiderosis Social History Social History Alcohol intake: never Substance Use Type: Marijuana Advance Directives: No Advance Directives Information Provided: No Do you have a plan to hurt others: No Plan Physical Exam Vital Signs: Vital Signs: Last Vital Signs Temp 98.8 F 03/16/24 21:55 Pulse 86 03/16/24 21:55 Resp 18 03/16/24 21:55 BP 113/63 03/16/24 21:55 Pulse Ox 100 03/16/24 21:55 O2 Del Method Room Air 03/16/24 21:55 O2 Flow Rate 6 03/16/24 19:39 BMI result Body Mass Index 26.7 Const: Other: The patient is a 28-year-old female who was awake and alert. She looks as if she felt unwell but she was not exhibiting any signs of acute respiratory distress. No increased work of breathing. Mental status was normal. HEENT: Other: Face is symmetrical. Mucous membranes moist. Eyes: Other: Pupils are round equal, conjunctivae are clear Neck: Other: No stridor, no lymphadenopathy Resp: Other: I did not appreciate any definite wheezes or crackles. Effort & Inspection: normal respiratory effort Auscultation: clear to auscultation bilaterally Cardio: Rate: regular rate Rhythm: regular rhythm Heart sounds: S1 normal heart sound present and S2 normal heart sound present GI: Other: Abdomen is soft and nontender Skin: Other: Skin is dry and unremarkable Neuro: Other: The patient is awake and alert with a normal mental status. Cranial nerves are grossly intact. She moves all extremities normally. She seems neurologically intact. Extrem: Other: No calf swelling or tenderness. No asymmetry. No edema. Medications Administered Discontinued Medications Generic Name Dose Route Start Last Admin Trade Name Freq PRN Reason Stop Dose Admin Oseltamivir Phosphate 75 mg 03/16/24 21:27 03/16/24 21:43 Oseltamivir Phosphate 75 Mg Capsule PO 03/16/24 21:28 75 mg ONCE ONE Administration Medical Decision Making Medical Decision Making [facility] Narrative: The patient is a 28-year-old female with a history of asthma. She also has a history of idiopathic pulmonary hemosiderosis. She presents with a proximally 48 hours of an acute illness characterized by a sense of fever and chills, body aches and cough. Chest x-ray is negative. Viral swab is positive for influenza. I suspect that the patient's symptoms are consistent with influenza and my suspicion for an alternative significant additional diagnosis is very low. Given the patient's history of asthma and idiopathic pulmonary hemosiderosis we will start the patient on oseltamivir. The patient was feeling somewhat better in the emergency room and was comfortable with this plan. Lab Data 03/16/24 20:23 03/16/24 20:23 Labs: Lab Results 03/16/24 03/16/24 Range/Units 20:23 20:30 WBC 5.7 (4.8-10.8) X10*3/uL RBC 4.48 (4.20-5.50) X10*6/uL Hgb 14.1 (12.0-16.0) g/dl Hct 39.8 (37.0-47.0) % MCV 88.8 (80.0-98.0) fL MCH 31.5 (27.0-33.0) pg MCHC 35.4 H (31.0-35.0) g/dl RDW 14.3 (11.0-16.0) % Plt Count 253 (160-400) X10*3/uL MPV 9.2 L (9.4-12.3) fL Immature Gran % (Auto) 0.4 (0.0-0.4) % Neut % (Auto) 53.5 (45-73) % Lymph % (Auto) 25.4 (20-40) % Major % (Auto) 20.5 H (2-11) % Eos % (Auto) 0.0 (0-4) % Baso % (Auto) 0.2 (0-2) % Lymph # (Auto) 1.5 (1.2-4.9) X10*3/uL Major # (Auto) 1.2 (0.1-1.2) X10*3/uL Eos # (Auto) 0.0 (0.0-0.4) X10*3/uL Baso # (Auto) 0.0 (0.0-0.2) X10*3/uL Abs Immat Gran (auto) 0.02 (0.00-0.03) X10*3/uL Absolute Neuts (auto) 3.1 (2.0-8.3) x10*3/uL Absolute Nucleated RBC 0.000 (0.0-0.012) X10*3/uL Nucleated RBC % (auto) 0.0 (0.0-0.2) /100WBC Smear Tech's Comments VERIFIED VBG pH 7.39 (7.32-7.43) VBG pCO2 36 mmHg VBG pO2 69 mmHg VBG HCO3 22 (22-26) mmol/L VBG O2 Saturation 94.0 % VBG Base Excess -1.9 mmol/L Sodium 138 (135-145) mmol/L Potassium 3.1 L (3.3-5.1) mmol/L Chloride 109 H (96-108) mmol/L Carbon Dioxide 20 L (22-29) mmol/L Anion Gap 12 (12-20) BUN 13 (9-16) mg/dL Creatinine 0.67 (0.5-1.4) mg/dL Estim Creat Clear Calc 104.6 Estimated GFR > 60 Random Glucose 94 (60-115) mg/dL Calcium 9.0 (8.4-10.2) mg/dL Total Bilirubin 0.3 (0.0-1.0) mg/dL AST 35 H (5-31) U/L ALT 20 (0-31) U/L Alkaline Phosphatase 61 (39-117) U/L Troponin I High Sens < 2.7 (<3.5-17.0) ng/L Total Protein 8.2 H (6.5-8.0) g/dL Albumin 4.3 (3.5-5.0) g/dL Influenza Type A (PCR) POSITIVE A (Negative) Influenza Type B (PCR) NEGATIVE (Negative) RSV RNA Qual (PCR) NEGATIVE (Negative) SARS-CoV-2 RNA (RT-PCR) NEGATIVE (Negative) Discharge Plan Discharge Clinical Impression: Influenza Patient Disposition: Home, Self-Care Instructions: Influenza (ED) Additional Instructions: You have tested positive for the flu today. I think this is why you are feeling so bad. You has been started on a medication to help reduce the symptoms of influenza. This is oseltamivir (also known as Tamiflu). Please take this medication 2 times a day as prescribed. Drink lot of fluids. You may use acetaminophen as needed for discomfort. Stay in touch with your primary care doctor's for additional advice as needed. Return to the emergency room if you feel significantly worse. Prescriptions: New oseltamivir 75 mg capsule 75 mg PO BID 5 Days Qty: 10 0RF No Action azithromycin 250 mg tablet See Rx Instructions .ROUTE .COMPLEX Qty: 6 0RF Rx Instructions: take 500 mg today (day 1), then 250 mg for 4 days (days 2-5) Referrals: Balwinder Landa MD [Physician] - (Influenza) Stand Alone Forms: Work/School Release Interventions: ED Discharge Assessment Last Done: 03/16/24 21:55 Discharge Date/Time: 03/16/24 21:55 Print Language: Angolan
[2024-03-16 21:09] LABS: Influenza A PCR POSITIVE (Negative); Influenza B PCR NEGATIVE (Negative); Resp Syncy Virus RNA Qual PCR NEGATIVE (Negative); SARS COV2 PCR INHOUSE NEGATIVE (Negative)
[2024-03-16 21:33] LABS: SLIDE REVIEW VERIFIED
[2024-03-16] MEDS: Oseltamivir Phosphate 75 MG CAPSULE PO (21:43)
[2024-03-16 21:44] VITALS: BP 113/63; PULSE 86; RESP 18; TEMP 37.1; O2SAT 100
[2024-03-16 21:55] VITALS: BP 113/63; PULSE 86; RESP 18; TEMP 37.1; O2SAT 100
== END 2024-03-16 21:55 | disposition home or self-care (01) ==
PROVIDERS: Emergency Provider Emergency Medicine; PCP Nurse Practitioner Family
DX: J10.1 Influenza due to other identified influenza virus with other respiratory manifestations (principal); J45.909 Unspecified asthma, uncomplicated; Z03.818 Encounter for observation for suspected exposure to other biological agents ruled out
CPT/HCPCS: 0241U; 36415; 71045; 80053; 82803; 84484; 85025; 93005; 99283

== ENCOUNTER → 2024-03-16 19:47 | Outpatient (BNV) | payer OTHER, SELFPAY | PROVIDERS: PCP Nurse Practitioner Family; Visit Provider Radiology Diagnostic Radiology | DX: R06.00 Dyspnea, unspecified (principal) | CPT/HCPCS: 71045 ==

== ENCOUNTER → 2024-03-16 19:51 | Outpatient (BNV) | payer OTHER, SELFPAY | PROVIDERS: Emergency Provider Emergency Medicine; PCP Nurse Practitioner Family; Visit Provider Internal Medicine | DX: R07.9 Chest pain, unspecified (principal) | CPT/HCPCS: 93010 ==

== ENCOUNTER 2024-03-20 02:18 | Emergency (ER) | payer OTHER, SELFPAY ==
[2024-03-20 02:39] VITALS: BP 116/67; PULSE 94; RESP 20; TEMP 37.1; O2SAT 100; BMI 24.4
[2024-03-20 03:01] LABS: Basophils Percent Auto 0.2 % (0-2); Eosinophils Percent Auto 0.2 % (0-4); Hematocrit 36.6 % (37.0-47.0); Hemoglobin 12.4 g/dl (12.0-16.0); Imm Gran Abs Auto 0.01 X10*3/uL (0.00-0.03); Imm Gran Pct Auto 0.1 % (0.0-0.4); Lymphocytes Absolute Auto 3.3 X10*3/uL (1.2-4.9); Lymphocytes Percent Auto 31.9 % (20-40); MANUAL DIFF FLAG SCAN; Mean Corpuscular HGB Conc 33.9 g/dl (31.0-35.0); Mean Corpuscular Volume 88.6 fL (80.0-98.0); Mean Platelet Volume 8.7 fL (9.4-12.3); Monocytes Absolute Auto 1.2 X10*3/uL (0.1-1.2); Neutrophils Absolute Auto 5.7 x10*3/uL (2.0-8.3); Neutrophils Percent Auto 55.6 % (45-73); Platelet Count 223 X10*3/uL (160-400); Red Blood Count 4.13 X10*6/uL (4.20-5.50); SCAN SMEAR FLAG 1; White Blood Count 10.3 X10*3/uL (4.8-10.8)
[2024-03-20 03:23] LABS: Alanine Aminotransferase 32 U/L (0-31); Albumin Level 3.9 g/dL (3.5-5.0); Anion Gap 14 (12-20); Aspartate Amino Transferase 35 U/L (5-31); Bilirubin Total 0.3 mg/dL (0.0-1.0); Blood Urea Nitrogen 10 mg/dL (9-16); Calcium 9.2 mg/dL (8.4-10.2); Carbon Dioxide 22 mmol/L (22-29); Chloride 109 mmol/L (96-108); Creatinine Clr Calc Pharmacy 100.4; Estimated Glomerular Filt Rate > 60; Glucose Random 114 mg/dL (60-115); Potassium 3.7 mmol/L (3.3-5.1); Sodium 141 mmol/L (135-145); Total Protein 7.6 g/dL (6.5-8.0)
[2024-03-20 03:29] LABS: SLIDE REVIEW VERIFIED
[2024-03-20] MEDS: Morphine Sulfate 4 MG/ML CARTRIDGE IVPUSH (03:44)
--- NOTE | 2024-03-20 03:45 | ED.SKABFB ---
HPI - Skin/Abscess/Foreign Bdy General Chief complaint: Skin/Abscess/Foreign Body Stated complaint: cyst Time Seen by Provider: 03/20/24 03:36 Source: patient Limitations: no limitations History of Present Illness ED Provider: Isatu Campbell PA-C HPI narrative: 28-year-old female presents with a abscess. Patient shaved her vaginal area, then developed a swelling she thought to be an ingrown hair. Over the past few days, the areas become more tender firm and painful. Patient applied a heating pad to the site, and subsequently burned the skin. Denies fever, there has been some blood-tinged pus draining from the site. Related Data Previous Rx's ?Medication ?Instructions ?Recorded azithromycin 250 mg tablet See Rx Instructions PO .COMPLEX #6 01/31/20 tabs oseltamivir 75 mg capsule 75 mg PO BID 5 days #10 caps 03/16/24 doxycycline hyclate 100 mg capsule 100 mg PO BID #14 caps 03/20/24 Allergies Allergy/AdvReac Type Severity Reaction Status Date / Time milk Allergy Unknown Verified 03/20/24 02:41 aspirin AdvReac Unknown Verified 03/20/24 02:41 ibuprofen [From Motrin] AdvReac Unknown Verified 03/20/24 02:41 Review of Systems Review of Systems: Yes all other systems are reviewed and are negative Constitutional: Constitutional: Denies fatigue and Denies fever(s) Integumentary/Breasts: Skin/Breast: Reports erythema, Reports skin swelling and Reports wounds Endocrine: Endocrine: Denies fatigue PMFSH Past Medical History Attestation statement: The following information was validated with the patient. Medical History Anxiety Asthma Pulmonary hemosiderosis Social History Social History Alcohol intake: never Smoked in Last 30 Days: No Use of substances other than those prescribed or required for medical reasons: No Substance Use Type: Marijuana Advance Directives: No Advance Directives Information Provided: Yes Do you have a plan to hurt others: No Plan Patient : No Physical Exam Vital Signs: Vital Signs: Last Vital Signs Temp 98.8 F 03/20/24 02:39 Pulse 94 03/20/24 02:39 Resp 20 03/20/24 02:39 BP 116/67 03/20/24 02:39 Pulse Ox 100 03/20/24 02:39 O2 Del Method Room Air 03/20/24 02:39 BMI result Body Mass Index 24.4 Const: Other: Alert, anxious Orientation/consciousness: patient oriented x3 Resp: Effort & Inspection: normal respiratory effort Cardio: Other: Normal peripheral perfusion : Other: Tender, swollen, indurated and erythematous region inferior to the labia on the right side, lateral to the perineum. The center is fluctuant with an overlying scab Skin: Other: Warm dry no rash Neuro: General: patient oriented x3, no focal motor deficits and CN's II-XI intact bilaterally Psych: Other: Very anxious and tearful, but being cooperative Medications Administered Discontinued Medications Generic Name Dose Route Start Last Admin Trade Name Freq PRN Reason Stop Dose Admin Haloperidol Lactate 5 mg 03/20/24 04:04 03/20/24 04:09 Haloperidol Lactate 5 Mg/Ml Vial IVPUSH 03/20/24 04:05 5 mg ONCE ONE Administration Lidocaine HCl 1 appl 03/20/24 03:35 03/20/24 03:47 Lidocaine 4 % Cream Kit TOPICAL 03/20/24 03:36 1 appl ONCE ONE Administration Protocol Lidocaine/Epinephrine 10 ml 03/20/24 03:35 03/20/24 03:47 Lidocaine Hcl 1%/Epi 1:100,000 10 Ml Vial INFILTRATI 03/20/24 03:36 10 ml ONCE ONE Administration Lorazepam 1 mg 03/20/24 03:35 03/20/24 03:46 Lorazepam 2 Mg/Ml Vial IVPUSH 03/20/24 03:36 Not Given STAT STA Morphine Sulfate 4 mg 03/20/24 03:35 03/20/24 03:44 Morphine Sulfate 4 Mg/Ml Cartridge IVPUSH 03/20/24 03:36 4 mg ONCE ONE Administration Protocol Medical Decision Making Medical Decision Making MDM Narrative: 28-year-old female presents with a abscess. Patient shaved her vaginal area, then developed a swelling she thought to be an ingrown hair. Over the past few days, the areas become more tender firm and painful. Patient applied a heating pad to the site, and subsequently burned the skin. Denies fever, there has been some blood-tinged pus draining from the site. No chronic issues History: Per patient I have considered the following differential diagnoses: Cellulitis, purulent cellulitis, Britt gangrene, abscess, Bartholin gland cyst Plan: Patient has a an abscess, that requires I and D. we will place on doxycycline. No indication for imaging Lab Data 03/20/24 02:54 03/20/24 02:54 Labs: Lab Results 03/20/24 Range/Units 02:54 WBC 10.3 (4.8-10.8) X10*3/uL RBC 4.13 L (4.20-5.50) X10*6/uL Hgb 12.4 (12.0-16.0) g/dl Hct 36.6 L (37.0-47.0) % MCV 88.6 (80.0-98.0) fL MCH 30.0 (27.0-33.0) pg MCHC 33.9 (31.0-35.0) g/dl RDW 14.0 (11.0-16.0) % Plt Count 223 (160-400) X10*3/uL MPV 8.7 L (9.4-12.3) fL Immature Gran % (Auto) 0.1 (0.0-0.4) % Neut % (Auto) 55.6 (45-73) % Lymph % (Auto) 31.9 (20-40) % [place] % (Auto) 12.0 H (2-11) % Eos % (Auto) 0.2 (0-4) % Baso % (Auto) 0.2 (0-2) % Lymph # (Auto) 3.3 (1.2-4.9) X10*3/uL [place] # (Auto) 1.2 (0.1-1.2) X10*3/uL Eos # (Auto) 0.0 (0.0-0.4) X10*3/uL Baso # (Auto) 0.0 (0.0-0.2) X10*3/uL Abs Immat Gran (auto) 0.01 (0.00-0.03) X10*3/uL Absolute Neuts (auto) 5.7 (2.0-8.3) x10*3/uL Absolute Nucleated RBC 0.000 (0.0-0.012) X10*3/uL Nucleated RBC % (auto) 0.0 (0.0-0.2) /100WBC Smear Tech's Comments VERIFIED Sodium 141 (135-145) mmol/L Potassium 3.7 (3.3-5.1) mmol/L Chloride 109 H (96-108) mmol/L Carbon Dioxide 22 (22-29) mmol/L Anion Gap 14 (12-20) BUN 10 (9-16) mg/dL Creatinine 0.67 (0.5-1.4) mg/dL Estim Creat Clear Calc 100.4 Estimated GFR > 60 Random Glucose 114 (60-115) mg/dL Calcium 9.2 (8.4-10.2) mg/dL Total Bilirubin 0.3 (0.0-1.0) mg/dL AST 35 H (5-31) U/L ALT 32 H (0-31) U/L Alkaline Phosphatase 62 (39-117) U/L Total Protein 7.6 (6.5-8.0) g/dL Albumin 3.9 (3.5-5.0) g/dL Procedures Abscess I/D Site: other (buttock) Side (if applicable): right Sedation/analgesia: other (haldol and morphine) Local Anesthetic: lidocaine 1% and with epi Amount of anesthesia used (mL): 4 (also applied EMLA first) Technique: needle aspiration Amount of fluid expressed (mL): 6 Sent for culture/gram staining?: No Irrigation: No Packing used?: none Discharge Plan Discharge Clinical Impression: Abscess and cellulitis of gluteal region Patient Disposition: Home, Self-Care Instructions: Abscess Follow-up (ED), Incision and Drainage (ED) Additional Instructions: You had an abscess that was drained. See home care instructions. Be sure to take the doxycycline as directed. You can apply a thin layer of [id number] bacitracin over the entire area to help protect the skin. Follow up with your primary care provider for a recheck next week. Try to be seen within 5 days. Prescriptions: New doxycycline hyclate 100 mg capsule 100 mg PO BID Qty: 14 0RF No Action azithromycin 250 mg tablet See Rx Instructions .ROUTE .COMPLEX Qty: 6 0RF Rx Instructions: take 500 mg today (day 1), then 250 mg for 4 days (days 2-5) oseltamivir 75 mg capsule 75 mg PO BID 5 Days Qty: 10 0RF Print Language: Zimbabwean
[2024-03-20 03:46] LABS: Alkaline Phosphatase 62 U/L (39-117)
[2024-03-20] MEDS: Lidocaine HCl 1%/Epi 1:100,000 10 ML VIAL INFILTRATI (03:47)
[2024-03-20] MEDS: Lidocaine 4 % Cream KIT 1 APPL TOPICAL (03:47)
[2024-03-20] MEDS: Haloperidol Lactate 5 MG/ML VIAL IVPUSH (04:09)
--- NOTE | 2024-03-20 04:47 | PC.NURSE ---
Pt PO challenged, tolerating without difficulty. Clered for dc home. Awaiting abx and dc paperwork.
[2024-03-20] MEDS: Doxycycline Monohydrate 100 MG CAPSULE PO (04:49)
[2024-03-20 05:25] VITALS: BP 116/67; PULSE 94; RESP 20; TEMP 37.1; O2SAT 100
== END 2024-03-20 05:25 | disposition home or self-care (01) ==
PROVIDERS: Emergency Provider Internal Medicine; PCP Nurse Practitioner Family
DX: L02.31 Cutaneous abscess of buttock (principal); Z79.899 Other long term (current) drug therapy
CPT/HCPCS: 10060; 36415; 80053; 85025; 96374; 96375; 99284; J1630; J2004; J2270